=== PATIENT | female | born 1985 | race Hispanic/Latino ===

== ENCOUNTER 2020-04-08 13:54 | Emergency (ER) | payer SELFPAY ==
[~2020-04-08] VITALS: Ht 170.2 cm; Wt 104.3 kg
[2020-04-08] MEDS ORDERED: KETOROLAC TROMETHAMINE 30 MG/ML VIAL IV STA (14:10)
[2020-04-08] MEDS ORDERED: ONDANSETRON HCL INJ 2MG/ML 2ML 2 MG/ML VIAL IV STA ×2 (14:10→15:27)
[2020-04-08] MEDS ORDERED: MORPHINE SULFATE 2 MG/ML SYR 1ML IV STA (15:27)
[2020-04-08] MEDS ORDERED: MORPHINE SULFATE INJ 4 MG/ML INJ 1ML ONE (15:39)
[2020-04-08] MEDS ORDERED: ONDANSETRON HCL INJ 2MG/ML 2ML 2 MG/ML VIAL ONE (15:39)
[2020-04-08] MEDS ORDERED: DIPHENHYDRAMINE HCL INJ 50 MG/ML VIAL IV ONE (16:00)
[2020-04-08] MEDS ORDERED: ZOFRAN4 MG SL (16:18)
[2020-04-08] MEDS ORDERED: KETOROLAC TROME10 MG PO (16:18)
[2020-04-08] MEDS ORDERED: FLOMAX0.4 MG PO (16:18)
[2020-04-08] MEDS ORDERED: ULTRAM50 MG PO (16:18)
== END 2020-04-08 16:24 | disposition home or self-care (01) ==
LOC: FSED 14:15
DX: N20.2 Calculus of kidney with calculus of ureter (principal); M54.5 Low back pain
CPT/HCPCS: 74176; 99284; J1200; J1885; J2270; J2405